=== PATIENT | female | born 1960 | race Caucasian/White ===

== ENCOUNTER 2019-01-19 06:26 | Emergency (ER) | payer BC, OTHER ==
[~2019-01-19] VITALS: Ht 162.6 cm; Wt 48.1 kg
[~2019-01-19 06:26] MED LIST: HCTZ; LISINOPRIL
[2019-01-19 06:55] VITALS: BP_SYST 145
[2019-01-19] MEDS ORDERED: ATEN-41 PO (07:02)
[2019-01-19] MEDS ORDERED: TRIA1TAB98 PO (07:03)
[2019-01-19] MEDS ORDERED: LIDOCAINE 2%, 20 ML MDV ONE (07:26)
[2019-01-19] MEDS: TRIAMCINOLONE ACETONIDE 40 MG/ML IM ONE (07:50)
[2019-01-19] MEDS: LIDOCAINE MPF 2% 5mL VIAL INJ ONE (07:50)
[2019-01-19 09:01] VITALS: BP_SYST 135
== END 2019-01-19 09:00 | disposition home or self-care (01) ==
LOC: SED 06:26
DX: M54.81 Occipital neuralgia (principal); M25.552 Pain in left hip; I10 Essential (primary) hypertension; Z87.442 Personal history of urinary calculi; Z88.5 Allergy status to narcotic agent; Z88.6 Allergy status to analgesic agent; Z88.8 Allergy status to other drugs, medicaments and biological substances; Z79.899 Other long term (current) drug therapy
CPT/HCPCS: 96372; 99283; J2001; J3301

== ENCOUNTER 2023-01-06 23:44 | Emergency (ER) | payer BC ==
[~2023-01-06] VITALS: Ht 162.6 cm; Wt 96.2 kg
[~2023-01-06 23:44] MED LIST changes: +ATEN-41 PO; -HCTZ; -LISINOPRIL; +TRIA1TAB98 PO
[2023-01-06 23:53] VITALS: BP_SYST 142
[2023-01-07] MEDS ORDERED: ALBUTEROL SULFATE 0.083% 2.5 MG/3 ML VIAL.NEB INH ONE (00:15)
--- NOTE | 2023-01-07 00:15 | NUR ---
Patient to ER bed 02 to gown for evaluation. Side rails up. Report given to MARRY HDZ.
--- NOTE | 2023-01-07 00:17 | NUR ---
ER at bedside examining patient.
--- NOTE | 2023-01-07 00:31 | NUR ---
COVID SWAB GIVEN TO
--- NOTE | 2023-01-07 01:00 | NUR ---
[employer] MAINTENANCE AT BEDSIDE FOR BLOOD DRAW
[2023-01-07] MEDS ORDERED: ALBMDI INH (01:23)
[2023-01-07] MEDS ORDERED: INHA1EAC52 MC (01:23)
[2023-01-07 01:29] LABS: BASOPHILS % (AUTO) 0.3 % (0.0-2.0); EOSINOPHILS # (AUTO) 0.1 K/uL (0.0-0.4); EOSINOPHILS % (AUTO) 1.5 % (0.0-4.0); HEMATOCRIT 43.5 % (36-48); HEMOGLOBIN 15.1 g/dL (12.0-16.0); LYMPHOCYTES # (AUTO) 4.9 K/uL (1.0-5.5); LYMPHOCYTES % (AUTO) 49.4 % (20.5-51.5); MEAN CORPUSCULAR HEMOGLOBIN 32 pg (27-31); MEAN CORPUSCULAR HGB CONC 35 % (32-36); MEAN CORPUSCULAR VOLUME 92 fL (79.0-98.0); MONOCYTES % (AUTO) 9.9 % (1.7-9.3); NEUTROPHILS # (AUTO) 3.8 K/uL (1.8-7.7); NEUTROPHILS % (AUTO) 38.9 % (40.0-70.0); PLATELET COUNT (AUTO) 258 K/uL (130-430); RED BLOOD CELL COUNT(AUTO) 4.74 MIL/uL (4.2-6.2); RED CELL DISTRIBUTION WIDTH 13.4 % (9.0-15.0); WHITE BLOOD COUNT (AUTO) 9.8 K/uL (4.8-10.8)
--- NOTE | 2023-01-07 01:30 | NUR ---
Patient given written and verbal discharge instructions and verbalizes understanding. ER MD discussed with patient the results and treatment provided. Patient in stable condition. ID arm band removed. Rx of ALBUTEROL given. Patient educated on pain management and to follow up with PMD. Pain Scale 0/10 Opportunity for questions provided and answered. Medication side effect fact sheet provided.
[2023-01-07 01:44] LABS: ALANINE AMINOTRANSFERASE 67 U/L (12-78); ALBUMIN 3.9 g/dL (3.4-4.8); ANION GAP 15 (5-15); ASPARTATE AMINOTRANSFERASE 32 U/L (10-37); CALCIUM 9.6 mg/dL (8.4-11.0); CHLORIDE 98 mmol/L (98-107); CREATININE 0.92 mg/dL (0.55-1.30); GFR AFRICAN AMERICAN 79 mL/min (>90); GLUCOSE 137 mg/dL (70-99); TOTAL BILIRUBIN 0.2 mg/dL (0.0-1.0); UREA NITROGEN, BLOOD 13 mg/dL (8-21)
--- NOTE | 2023-01-07 01:51 | NUR ---
DR. PARKS CALLED PATIENT TO RETURN TO ED FOR CRITICAL POTASSIUM OF 2.5
[2023-01-07] MEDS ORDERED: KCL 20 mEq in 100 mL (PREMIX) 100 ML IV ONE ×3 (02:30→05:00)
[2023-01-07] MEDS ORDERED: POTASSIUM CHLORIDE 20 MEQ TAB.PRT.SR PO ONE ×2 (02:30→05:00)
--- NOTE | 2023-01-07 02:30 | NUR ---
PATIENT RETURNED WITH SON FOR POTASSIUM REPLACEMENT. PATIENT PLACED BACK INTO ROOM 2 AND PLACED ON CARDIAC MONITORING
[2023-01-07] MEDS ORDERED: POTASSIUM CHLORIDE 20 MEQ TAB.PRT.SR ONE (02:49)
--- NOTE | 2023-01-07 03:16 | NUR ---
# 20 gauge angiocath placed to RAC. Use of asceptic technique. Opsite placed over site. Blood return noted. Blood for lab drawn from site. Flushed with 10 cc of normal saline. No evidence of infiltration noted. Patient tolerated well.
--- NOTE | 2023-01-07 03:30 | NUR ---
REPORT REC FROM MARRY HDZ. REC PT SITTING UP IN BED, EVEN AND UNLABORED RESP NOTED. PT DENIES ANY PAIN AND DISCOMFORT AT THIS TIME. SAFETY PRECAUTIONS IN PLACE AND CONNECTED TO THE ROLL FORMER.
[2023-01-07] MEDS ORDERED: NACL 0.9% 1,000 ML IV ONE (04:15)
[2023-01-07 04:51] LABS: ALBUMIN 3.6 g/dL (3.4-4.8); CALCIUM 9.1 mg/dL (8.4-11.0); CREATININE 0.91 mg/dL (0.55-1.30); TOTAL BILIRUBIN 0.2 mg/dL (0.0-1.0)
[2023-01-07] MEDS ORDERED: iohexoL 350 mgI/mL, 100 ML INFUS..BTL IV ONE (05:04)
--- NOTE | 2023-01-07 05:50 | NUR ---
PT TO CT VIA LILY ACCOMPANIED BY
[2023-01-07] MEDS ORDERED: PRED20TA PO (07:09)
--- NOTE | 2023-01-07 07:20 | NUR ---
RECEIVED PT FROM MARRY WEBSTER. ASSUMED CARE.
--- NOTE | 2023-01-07 07:27 | NUR ---
REPORT GIVEN TO MARRY VERDUZCO TO ASSUME CARE.
--- NOTE | 2023-01-07 09:02 | NUR ---
Patient given written and verbal discharge instructions and verbalizes understanding. ER MD discussed with patient the results and treatment provided. Patient in stable condition. ID arm band removed. IV catheter removed intact and dressing applied, no active bleeding. Rx of ALBUTEROL AND PREDNISONE AND BREATHERITE SPACE ADULT MASK given. Patient educated on pain management and to follow up with PMD. Pain Scale . Opportunity for questions provided and answered. Medication side effect fact sheet provided.
[2023-01-07 09:04] VITALS: BP_SYST 107
== END 2023-01-07 09:02 | disposition home or self-care (01) ==
LOC: SED 23:44
DX: J20.8 Acute bronchitis due to other specified organisms (principal); R06.02 Shortness of breath; I10 Essential (primary) hypertension; Z88.5 Allergy status to narcotic agent; Z88.6 Allergy status to analgesic agent; Z88.8 Allergy status to other drugs, medicaments and biological substances; Z79.899 Other long term (current) drug therapy; Z20.822 Contact with and (suspected) exposure to COVID-19
CPT/HCPCS: 80053; 83880; 83735; 85025; 85379; 84484; 36415; 99285; 87426; 93005; 71045; 71275; 76376; 94640; 96365; 96366; Q9967; J3480; J7613